=== PATIENT | female | born 1990 | race Two or more races ===

== ENCOUNTER 2021-11-07 13:47 | Emergency (ER) | payer OTHER ==
[~2021-11-07] VITALS: Ht 162.6 cm; Wt 55.0 kg
[2021-11-07] MEDS ORDERED: ONDANSETRON PF 4 MG/2 ML VIAL. IVP ONE (14:00)
[2021-11-07] MEDS ORDERED: IV NORMAL SALINE 1,000ML 1,000 ML IV ONE (14:00)
[2021-11-07 14:08] VITALS: BP 108/68
--- NOTE | 2021-11-07 14:28 | PHYS DOC ---
Past History Past Surgical History: No Surgical History General Adult EDM: Chief Complaint: VOMITING IN HPI: HPI: 31-year-old female who is about 6 weeks presents with vomiting. The patient states that she has not had her confirmatory OB appointment yet but had positive test. The patient has an appointment with her primary physician tomorrow. She believes she is about 6 weeks. She had difficulty with vomiting with her last child. She has been very nauseous and had several episodes of vomiting over the last couple days. She is worried about getting dehydrated. She has had no vaginal discharge or cramping. No lower abdominal pain. She was given Reglan last for nausea at home. She has no other complaints at this time. Review of Systems: Review of Systems: Constitutional: Denies fever or chills Eyes: Denies change in visual acuity HENT: Denies nasal congestion or sore throat Respiratory: Denies cough or shortness of breath Cardiovascular: Denies chest pain or edema GI: nausea, vomiting. Denies abdominal pain, bloody stools or diarrhea : Denies dysuria Musculoskeletal: Denies back pain or joint pain Integument: Denies rash Neurologic: Denies headache, focal weakness or sensory changes Endocrine: Denies polyuria or polydipsia Lymphatic: Denies swollen glands Psychiatric: Denies depression or anxiety Current Medications: Current Meds: Current Medications Medications (Trade) Dose Ordered Sig/Chidi Start Time Stop Time Status Last Admin Dose Admin Ondansetron HCl (Zofran) 4 mg 1X ONCE 11/07/21 14:00 11/07/21 14:23 DC Sodium Chloride 1,000 ml @ 1,000 mls/hr 1X ONCE 11/07/21 14:00 11/07/21 14:59 Allergies: Allergies: Allergies Coded Allergies Type Severity Reaction Last Updated Verified No Known Drug Allergies 11/07/21 No Physical Exam: PE: Constitutional: Well developed, well nourished, no acute distress, non-toxic appearance. [] HENT: Normocephalic, atraumatic, bilateral external ears normal, oropharynx moist, no oral exudates, nose normal. [] Eyes: PERRLA, EOMI, conjunctiva normal, no discharge. [] Neck: Normal range of motion, no tenderness, supple, no stridor. [] Cardiovascular: Heart rate regular rhythm, no murmur [] Lungs & Thorax: Bilateral breath sounds clear to auscultation [] Abdomen: Bowel sounds normal, soft, no tenderness, no masses, no pulsatile masses. [] Skin: Warm, dry, no erythema, no rash. [] Back: No tenderness, no CVA tenderness. [] Extremities: No tenderness, no cyanosis, no clubbing, ROM intact, no edema. [] Neurologic: Alert and oriented X 3, normal motor function, normal sensory function, no focal deficits noted. [] Psychologic: Affect normal, judgement normal, mood normal. [] Current Patient Data: Vital Signs: Vital Signs Date Time Temp Pulse Resp B/P (MAP) Pulse Ox O2 Delivery O2 Flow Rate FiO2 11/07/21 14:08 98.2 65 18 108/68 (81) 98 EKG: EKG: [] Radiology/Procedures: Radiology/Procedures: [] Heart Score: C/O Chest Pain: N/A Risk Factors: Risk Factors: DM, Current or recent (<one month) smoker, HTN, HLP, family history of CAD, obesity. Risk Scores: Score 0 - 3: 2.5% MACE over next 6 weeks - Discharge Home Score 4 - 6: 20.3% MACE over next 6 weeks - Admit for Clinical Observation Score 7 - 10: 72.7% MACE over next 6 weeks - Early Invasive Strategies Course & Med Decision Making: Course & Med Decision Making Pertinent Labs and Imaging studies reviewed. (See chart for details) The patient's labs are unremarkable. Her hCG is in line with about 6 weeks of . Urinalysis is negative for infection. The patient was given a liter normal saline and Zofran. She is feeling much better at this time. She has tolerated p.o. intake. I will discharge her with a prescription for Zofran and Reglan. She will see her PCP tomorrow. She is stable for discharge at this time. [] Dragon Disclaimer: Hermes Disclaimer: This electronic medical record was generated, in whole or in part, using a voice recognition dictation system. Departure Departure: Impression: Primary Impression: Vomiting affecting Disposition: HOME / SELF CARE / HOMELESS Condition: STABLE Referrals: RONNELL MARCUS (PCP) Patient Instructions: - First Trimester, Bbhq-[id number] Scripts Metoclopramide Hcl (REGLAN) 5 Mg Tablet 1-2 TAB PO TID PRN for NAUSEA/VOMITING, #20 TAB 0 Refills Prov: FRIDA CAMPOS DO 11/07/21 Ondansetron (ONDANSETRON ODT) 4 Mg Tab.rapdis 1 TAB PO PRN Q6-8HRS PRN for VOMITING, #16 TAB Prov: FRIDA CAMPOS DO 11/07/21 FRIDA CAMPOS DO Nov 07, 2021 14:28
[2021-11-07 15:01] LABS: BASO % 0 % (0-3); EOS # 0.1 x10^3/uL (0.0-0.7); EOS % 1 % (0-3); HEMATOCRIT 36.4 % (36.0-47.0); HEMOGLOBIN 12.3 g/dL (12.0-15.5); LYMPH # 1.5 x10^3/uL (1.0-4.8); LYMPH % 18 % (24-48); MEAN CORPUSCULAR HEMOGLOBIN 29 pg (25-35); MEAN CORPUSCULAR HGB CONC 34 g/dL (31-37); MEAN CORPUSCULAR VOLUME 86 fL (79-100); MONO # 0.6 x10^3/uL (0.0-1.1); MONO % 8 % (0-9); NEUT % 73 % (31-73); PLATELET COUNT 341 x10^3/uL (140-400); RED BLOOD COUNT 4.24 x10^6/uL (3.50-5.40); RED CELL DISTRIBUTION WIDTH 13.3 % (11.5-14.5); WHITE BLOOD COUNT 8.2 x10^3/uL (4.0-11.0)
[2021-11-07 15:10] LABS: CREATININE 0.5 mg/dL (0.6-1.0); GFR 144.9; POTASSIUM 3.7 mmol/L (3.5-5.1)
[2021-11-07 15:16] LABS: ALBUMIN 3.9 g/dL (3.4-5.0); ALBUMIN/GLOBULIN RATIO 1.1 (1.0-1.7); TOTAL BILIRUBIN 0.5 mg/dL (0.2-1.0); TOTAL PROTEIN 7.4 g/dL (6.4-8.2)
[2021-11-07 16:29] LABS: BILIRUBIN,URINE NEG (NEG); CLARITY,URINE CLOUDY; COLOR,URINE YELLOW; GLUCOSE,URINE NEG (NEG)
[2021-11-07 16:30] LABS: AMORPHOUS SEDIMENT,UR PRESENT /HPF; BACTERIA,URINE 0 /HPF (0-FEW); NITRITE,URINE NEG (NEG); RBC,URINE OCC /HPF (0-2); SQUAMOUS EPITHELIAL CELL,UR FEW /LPF; UROBILINOGEN,URINE 0.2 mg/dL (0.2 mg/dL); WBC,URINE OCC /HPF (0-4)
[2021-11-07] MEDS ORDERED: ONDA4TAB12 PO (16:48)
[2021-11-07] MEDS ORDERED: METO5TAB55 PO (16:48)
== END 2021-11-07 17:05 | disposition home or self-care (01) ==
LOC: ER 13:47
DX: O21.8 Other vomiting complicating pregnancy (principal); Z3A.01 Less than 8 weeks gestation of pregnancy
CPT/HCPCS: 36415; 80053; 81001; 84702; 85025; 96361; 96374; 99283; J2405; J7030

== ENCOUNTER 2021-11-24 21:02 | Emergency (ER) | payer OTHER ==
[~2021-11-24] VITALS: Ht 162.6 cm; Wt 60.1 kg
[~2021-11-24 21:02] MED LIST: METO5TAB55 PO; ONDA4TAB12 PO
[2021-11-24] MEDS ORDERED: METOCLOPRAMIDE HCL 10 MG/2 ML VIAL. IVP ONE (21:30)
[2021-11-24] MEDS ORDERED: IV NORMAL SALINE 1,000ML 1,000 ML IV ONE (21:30)
[2021-11-24] MEDS ORDERED: ONDANSETRON PF 4 MG/2 ML VIAL. IVP ONE (21:30)
--- NOTE | 2021-11-24 21:33 | PHYS DOC ---
Past History Past Surgical History: No Surgical History (YING ROWE CLEAN IN PLACES OPERATOR) Alcohol Use: None (YING ROWE CLEAN IN PLACES OPERATOR) Adult General Chief Complaint Chief Complaint: NAUSEA/VOMITING/DIARRHEA HPI HPI Patient is a female 3 para 2 currently 8 weeks presenting to the ED today complaining of nausea, vomiting, symptoms begun 5wks ago. Patient denies any abdominal pain, denies any vaginal bleeding. She states she was seen in the ED November 07 2021, for the same complaint and was sent home with Zofran and Reglan. She states the medicine is not helping as much, she states she followed up with [facility] and her Zofran dose was increased with no improvement. She states she has an appointment with an [facility] on December 20, 2021. She states today she was taking a warm shower she became dizzy and passed out. Denies falling, denies hitting her head on anything. Denies any back pain. Denies abdominal pain (YING ROWE CLEAN IN PLACES OPERATOR) Review of Systems Review of Systems Constitutional: Denies fever or chills [] Eyes: Denies change in visual acuity, redness, or eye pain [] HENT: Denies nasal congestion or sore throat [] Respiratory: Denies cough or shortness of breath [] Cardiovascular: No additional information not addressed in HPI [] GI: Reports nausea and vomiting in denies abdominal pain, bloody stools or diarrhea [] : Denies dysuria or hematuria [] Musculoskeletal: Denies back pain or joint pain [] Integument: Denies rash or skin lesions [] Neurologic: Denies headache, focal weakness or sensory changes [] All other systems were reviewed and found to be within normal limits, except as documented in this note. (YING ROWE CLEAN IN PLACES OPERATOR) Current Medications Current Medications Current Medications Medications (Trade) Dose Ordered Sig/Chidi Start Time Stop Time Status Last Admin Dose Admin Metoclopramide HCl (Reglan Vial) 10 mg 1X ONCE 11/24/21 21:30 11/24/21 21:31 UNV Ondansetron HCl (Zofran) 4 mg 1X ONCE 11/24/21 21:30 11/24/21 21:31 UNV Sodium Chloride 1,000 ml @ 1,000 mls/hr 1X ONCE 11/24/21 21:30 11/24/21 22:29 UNV (WALDEMARYING Lowe CLEAN IN PLACES OPERATOR) Allergies Allergies Allergies Coded Allergies Type Severity Reaction Last Updated Verified No Known Drug Allergies 11/07/21 No (SOLEDADYING [place] CLEAN IN PLACES OPERATOR) Physical Exam Physical Exam Constitutional: Well developed, well nourished, no acute distress, non-toxic appearance. [] HENT: Normocephalic, atraumatic, bilateral external ears normal, oropharynx moist, no oral exudates, nose normal. [] Eyes: PERRLA, EOMI, conjunctiva normal, no discharge. [] Neck: Normal range of motion, no tenderness, supple, no stridor. [] Cardiovascular:Heart rate regular rhythm, no murmur [] Lungs & Thorax: Bilateral breath sounds clear to auscultation [] Abdomen: Bowel sounds normal, soft, no tenderness, no masses, no pulsatile ma sses. [] Skin: Warm, dry, no erythema, no rash. [] Back: No tenderness, no CVA tenderness. [] Extremities: No tenderness, no cyanosis, no clubbing, ROM intact, no edema. [] Neurologic: Alert and oriented X 3, normal motor function, normal sensory function, no focal deficits noted. [] Psychologic: Affect normal, judgement normal, mood normal. [] (YING ROWE CLEAN IN PLACES OPERATOR) Current Patient Data Vital Signs Vital Signs Date Time Temp Pulse Resp B/P (MAP) Pulse Ox O2 Delivery O2 Flow Rate FiO2 11/24/21 21:10 98.2 68 18 130/70 (90) 100 Room Air (YING ROWE CLEAN IN PLACES OPERATOR) EKG EKG [] (YING ROWE CLEAN IN PLACES OPERATOR) Radiology/Procedures Radiology/Procedures [] (YING ROWE CLEAN IN PLACES OPERATOR) Heart Score C/O Chest Pain: N/A Risk Factors: Risk Factors: DM, Current or recent (<one month) smoker, HTN, HLP, family history of CAD, obesity. Risk Scores: Risk Factors: DM, Current or recent (<one month) smoker, HTN, HLP, family history of CAD, obesity. (YING ROWE CLEAN IN PLACES OPERATOR) Course & Med Decision Making Course & Med Decision Making Pertinent Labs and Imaging studies reviewed. (See chart for details) This is a 31-year-old female patient 3 para 2 presented to the ED today with nausea and vomiting in that began 5 weeks ago. Patient reports dizziness and an episode of syncope today though she denies falling or hitting of her head on anything. CBC with a normal WBC, hemoglobin 12.1, hematocrit 35.5, UA negative for infection, BMP with no acute findings. Discharged home with promethazine suppository. Encouraged to follow-up with her own PCP and [facility] as soon as possible (YING ROWE APRN) Dragon Disclaimer Dragon Disclaimer This electronic medical record was generated, in whole or in part, using a voice recognition dictation system. (YING ROWE APRN) Departure Departure: Impression: Primary Impression: Hyperemesis gravidarum Disposition: HOME / SELF CARE / HOMELESS Condition: STABLE Referrals: RONNELL MARCUS (PCP) Follow-up with your [facility] and primary care doctor as soon as possible Patient Instructions: Diet - Hyperemesis Gravidarum, Hyperemesis Gravidarum Additional Instructions: You were evaluated in the emergency room for nausea and vomiting in . Your lab work was negative for any acute findings. No signs of dehydration. Continue pushing fluids. Follow-up with your [facility] and primary care doctor as soon as possible. Use the medicine prescribed for your symptoms as ordered Scripts Promethazine Hcl (PROMETHAZINE HCL) 25 Mg Supp.rect -Oct SUPP RC QID, #21 SUPP 0 Refills Prov: YING ROWE APRN 11/24/21 Attending Signature Attending Signature I have participated in the care of this patient and I have reviewed and agree with all pertinent clinical information above including history, exam, and recommendations. (NASRA RICARDO MD) Dragon Disclaimer This chart was dictated in whole or in part using Voice Recognition software in a busy, high-work load, and often noisy Emergency Department environment. It may contain unintended and wholly unrecognized errors or omissions. (NASRA RICARDO MD) YING ROWE APRN Nov 24, 2021 21:33 NASRA RICARDO MD Nov 25, 2021 06:32
[2021-11-24 21:58] LABS: BASO % 0 % (0-3); EOS # 0.2 x10^3/uL (0.0-0.7); EOS % 2 % (0-3); HEMATOCRIT 35.5 % (36.0-47.0); HEMOGLOBIN 12.1 g/dL (12.0-15.5); LYMPH # 1.4 x10^3/uL (1.0-4.8); LYMPH % 16 % (24-48); MEAN CORPUSCULAR HEMOGLOBIN 30 pg (25-35); MEAN CORPUSCULAR HGB CONC 34 g/dL (31-37); MEAN CORPUSCULAR VOLUME 87 fL (79-100); MONO # 0.6 x10^3/uL (0.0-1.1); MONO % 7 % (0-9); NEUT # 6.9 x10^3uL (1.8-7.7); NEUT % 75 % (31-73); PLATELET COUNT 352 x10^3/uL (140-400); RED BLOOD COUNT 4.08 x10^6/uL (3.50-5.40); RED CELL DISTRIBUTION WIDTH 13.3 % (11.5-14.5); WHITE BLOOD COUNT 9.1 x10^3/uL (4.0-11.0)
[2021-11-24 22:05] LABS: CREATININE 0.5 mg/dL (0.6-1.0); GFR 144.9; POTASSIUM 3.6 mmol/L (3.5-5.1)
[2021-11-24 22:06] LABS: BACTERIA,URINE FEW /HPF (0-FEW); BILIRUBIN,URINE NEG (NEG); CLARITY,URINE CLEAR; COLOR,URINE YELLOW; GLUCOSE,URINE NEG (NEG); NITRITE,URINE NEG (NEG); UROBILINOGEN,URINE 0.2 mg/dL (0.2 mg/dL)
[2021-11-24 22:07] LABS: SQUAMOUS EPITHELIAL CELL,UR MANY /LPF
[2021-11-24] MEDS ORDERED: PROM25SU33 RC (22:11)
[2021-11-24 22:12] LABS: ALBUMIN 3.7 g/dL (3.4-5.0); TOTAL BILIRUBIN 0.3 mg/dL (0.2-1.0); TOTAL PROTEIN 7.3 g/dL (6.4-8.2)
[2021-11-24 22:19] VITALS: BP 113/60
== END 2021-11-24 22:24 | disposition home or self-care (01) ==
LOC: ER 21:02
DX: O21.0 Mild hyperemesis gravidarum (principal); Z3A.08 8 weeks gestation of pregnancy
CPT/HCPCS: 36415; 80053; 81001; 85025; 96361; 96374; 96375; 99284; J2405; J2765; J7030